=== PATIENT | female | born 1950 | race Caucasian/White ===

== ENCOUNTER 2020-04-15 19:17 | Emergency (ER) | payer OTHER ==
[2020-04-15] MEDS ORDERED: AZITHROMYCIN250 MG PO (20:20)
[2020-04-15] MEDS ORDERED: DECADRON6 MG PO (20:20)
== END 2020-04-15 20:28 | disposition home or self-care (01) ==
LOC: ER1 19:17
DX: U07.1 COVID-19 (principal); E11.9 Type 2 diabetes mellitus without complications; I10 Essential (primary) hypertension; Z79.84 Long term (current) use of oral hypoglycemic drugs; Z79.899 Other long term (current) drug therapy
CPT/HCPCS: 99283